=== PATIENT | male | born 1970 | race Caucasian/White ===

== ENCOUNTER → 2021-12-07 | Outpatient (RCR) | payer BC | LOC: PT 09:04 | PROVIDERS: ATTEND Neurological Surgery | DX: M51.16 Intervertebral disc disorders with radiculopathy, lumbar region (principal); M62.81 Muscle weakness (generalized); M54.50 Low back pain, unspecified; M53.86 Other specified dorsopathies, lumbar region ==

== ENCOUNTER 2021-12-16 10:00 | Outpatient (RCR) | payer BC | END 2022-01-07 | LOC: PT 10:00 | PROVIDERS: ATTEND Neurological Surgery | DX: M51.16 Intervertebral disc disorders with radiculopathy, lumbar region (principal) ==